=== PATIENT | female | born 1955 | race Caucasian/White ===

== ENCOUNTER → 2016-12-25 | Outpatient (CLI) | payer OTHER ==
--- NOTE | 2016-12-25 13:59 | DIAGNOSTIC IMAGING REPORT ---
THYROID ULTRASONOGRAPHY CLINICAL HISTORY: R13.10 Dysphagia COMPARISON STUDY: No previous studies for comparison. FINDINGS: The right of the thyroid measures 5.5 x 1.7 x 1.4 cm. The left lobe measures 4. 81.5 x 1.2 cm. The thyroid is heterogeneous in echotexture. There is a 7 mm circumscribed hypoechoic lower pole left lobe nodule. IMPRESSION: 1. Heterogeneous thyroid echotexture. 7 mm hypoechoic circumscribed lower pole left lobe nodule. This nodule does not currently warrant aspiration based on size or morphologic characteristics. Surveillance is recommended. Electronically signed by: Festus Giles M.D. 12/25/2016 1:57 PM Dictated Date/Time: 12/25/2016 1:56 PM
== END | disposition home or self-care (01) ==
LOC: C.ULTR 13:12
PROVIDERS: ATTEND Internal Medicine Endocrinology, Diabetes & Metabolism
DX: R13.10 Dysphagia, unspecified (principal); E04.1 Nontoxic single thyroid nodule

== ENCOUNTER → 2016-12-26 | Outpatient (CLI) | payer OTHER ==
[2016-12-26 12:21] LABS: HEMATOCRIT 44.5 % (37-47); MEAN CELL VOLUME 92.3 fL (80-100); MEAN CORPUSCULAR HEMOGLOBIN 30.7 pg (25-34); MEAN CORPUSCULAR HGB CONC 33.3 g/dl (32-36); MEAN PLATELET VOLUME 10.7 fL (7.4-10.4); PLATELET COUNT 249 K/uL (130-400); RED BLOOD COUNT 4.82 M/uL (4.2-5.4); WHITE BLOOD COUNT 6.48 K/uL (4.8-10.8)
[2016-12-26 12:36] LABS: ALT/SGPT 37 U/L (12-78); BLOOD UREA NITROGEN 16 mg/dl (7-18); BUN/CREATININE RATIO 18.3 (10-20); CALCIUM 9.1 mg/dl (8.5-10.1); CARBON DIOXIDE 26 mmol/L (21-32); CHLORIDE 106 mmol/L (98-107); CHOLESTEROL 257 mg/dl (0-200); CREATININE 0.87 mg/dl (0.60-1.20); ESTIMATED AVERAGE GLUCOSE 123 mg/dl; GLUCOSE 106 mg/dl (70-99); HA1C FLAG Normal (Normal); POTASSIUM 4.2 mmol/L (3.5-5.1); SODIUM 141 mmol/L (136-145); TRIGLYCERIDES 171 mg/dl (0-150); VERY LOW DENSITY LIPOPROT CALC 34 mg/dl
[2016-12-26 12:43] LABS: INSULIN FASTING 22.6 mU/L (3-25)
[2016-12-26 12:45] LABS: ALB/GLOB RATIO 0.9 (0.9-2); ALKALINE PHOSPHATASE 88 U/L (45-117); AST/SGOT 16 U/L (15-37); CHOLESTEROL/HDL RATIO 4.5; HDL CHOLESTEROL 57 mg/dl; LDL CHOLESTEROL CALCULATED 166 mg/dl
== END | disposition home or self-care (01) ==
LOC: C.LABBFT 10:40
PROVIDERS: ATTEND Internal Medicine Endocrinology, Diabetes & Metabolism
DX: R53.83 Other fatigue (principal); I10 Essential (primary) hypertension; R73.01 Impaired fasting glucose; M79.1 Myalgia

== ENCOUNTER 2019-10-03 16:37 | Observation (INO) ==
[2019-10-03] MEDS ORDERED: ONDANSETRON INJ 2 MG/ML 2 ML VIAL IV STA (16:41)
[2019-10-03] MEDS ORDERED: KETOROLAC TROMETHAMINE 15 MG/ML VIAL IV ONE (16:43)
[2019-10-03] MEDS ORDERED: SODIUM CHLORIDE 0.9% 1000ML 1,000 ML IV SCH (16:45)
--- NOTE | 2019-10-03 16:53 | Emergency Department Note ---
Entered by Yumiko Fitzgerald acting as a scribe for Gordon Callahan DO History of Present Illness General Chief complaint: Kidney Stone Stated complaint: KIDNEY STONE, R SIDE AB/BACK PAIN Time Seen by Provider: 10/03/19 16:38 Source: patient and EMS Mode of arrival: EMS History of Present Illness Onset (ago): hour(s) (this morning) Location: back (right sided) Radiation: abdomen (right side) Pain Consistency: + constant Associated symptoms: + denies other symptoms (vomiting), + loss of appetite (x2 days) and + other (nausea, darkened yellow urine); no fever/chills Treatments prior to arrival: other (hydrocodone ) The patient is a 63 year old female with a history of right ureteral calculus, appendectomy, cholecystectomy, HTN, and [place] who presents to the Emergency Room wi complaints of a kidney stone. The patient was seen in the ED 2 days ago and diagnosed with a 3mm right sided proximal kidney stone. This morning she began experiencing worsening right sided back pain that radiates to the right side of her abdomen. 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 Additionally she complains of darkened yellow urine, nausea, and loss of appetite for 2 days. EMS reports that she passed a kidney stone during her recent visit without surgical intervention. Of note, she is not UTD on her vaccinations. She denies vomiting and fever. The patient offers no additional concerns at this time. Home Medications Home Medications Medication Instructions Recorded Confirmed Type calcium carbonate [Calcium 500] 500 mg PO HS 07/03/19 10/03/19 History lisinopril [Zestril] 40 mg PO QAM 07/03/19 10/03/19 History metformin [Glucophage XR] 500 mg PO QDD 07/03/19 10/03/19 History metoprolol tartrate [Lopressor] 50 mg PO BID 07/03/19 10/03/19 History montelukast [Singulair] 10 mg PO HS 07/03/19 10/03/19 History nitroglycerin [Nitrostat] 0.4 mg SUBLINGUAL DIRECTED PRN 07/03/19 10/03/19 History omeprazole 20 mg PO BID 07/03/19 10/03/19 History nebulizers #1 ea 07/20/19 10/01/19 Rx budesonide-formoterol HFA 160 2 puff INHALATION BID #10.2 gm 08/24/19 10/03/19 Rx mcg-4.5 mcg/actuation aerosol inhaler albuterol sulfate 90 mcg/actuation 2 puffs INHALATION Q6H PRN #18 gm 09/15/19 10/03/19 Rx aerosol inhaler albuterol sulfate 1.25 mg INH Q4H PRN 10/01/19 10/03/19 History hydrocodone-acetaminophen [[place]] 1 - 2 tab PO Q6H PRN #20 tab 10/01/19 10/03/19 Rx ondansetron 4 mg PO Q8H PRN 5 Days #14 tab 10/01/19 10/03/19 Rx ibuprofen 200 mg PO QID PRN 10/03/19 10/03/19 History tamsulosin [Flomax] 0.4 mg PO QAM 10/03/19 10/03/19 History Allergies Allergy/AdvReac Type Severity Reaction Status Date / Time Penicillins Allergy Unknown HAPPENED Verified 10/03/19 17:00 A CHILD Sulfa (Sulfonamide Allergy Unknown [facility] LIST Verified 10/03/19 17:00 Antibiotics) Past Med/Surg History Medical History (Updated 10/03/19 @ 19:35 by Jessica Johnson PA-C) CAD (coronary artery disease) Diabetes mellitus type II, controlled GERD (gastroesophageal reflux disease) Heart attack HLD (hyperlipidemia) Hypertension Kidney stone on right side Surgical History History of appendectomy History of cholecystectomy Family History Mother Hypertension Father Coronary heart disease Renal cell carcinoma Other Family history non-contributory Social History Preferred Language: [place]ian Communication Ability: Effective 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 and A total of 10 systems reviewed and were otherwise negative Physical Exam Vital Signs Vital Signs - 24 hr 10/03/19 16:45 10/03/19 17:03 10/03/19 17:54 Temperature 37.0 C Temperature Source Oral Pulse Rate 87 Pulse Rate [Apical] 89 Respiratory Rate 18 16 Blood Pressure 171/92 H Blood Pressure [Left Arm] 184/99 H Blood Pressure Mean 118 Blood Pressure Mean [Left Arm] 127 Pulse Oximetry 97 99 99 Oxygen Delivery Method Room Air Nasal Cannula Oxygen Flow Rate 1 Sepsis Recent Fever Within 48 Hours No Sepsis New/Unexplained Change in Mental Status No Sepsis Action Taken by Nursing No Action Required GENERAL: The patient is awake and alert. She is very anxious appearing and appears to be in significant pain. EYES: The conjunctivae are clear. The pupils are round and reactive. EARS, NOSE, MOUTH AND THROAT: The nose is without any evidence of any deformity. Mucous membranes are moist. Tongue is midline. NECK: The neck is nontender and supple. RESPIRATORY: Normal respiratory effort is noted there is no evidence of wheezing rhonchi or rales CARDIOVASCULAR: Regular rate and rhythm noted there no murmurs rubs or gallops normal S1 normal S2. GASTROINTESTINAL: The abdomen is soft and mildly distended. There is significant right-sided tenderness to palpation but no guarding or rigidity. BACK: No midline tenderness was noted. There was right sided CVA tenderness to percussion. Range of motion appears intact. MUSCULOSKELETAL/EXTREMITIES: There is no evidence of gross deformity full range of motion is noted in the hips and shoulders. SKIN: There is no obvious evidence of any rash. There are no petechiae, pallor or cyanosis noted. NEUROLOGIC: Patient is awake alert and oriented x3 strength is symmetric patellar reflexes are 2+ bilaterally Course Course 1641: Past medical records reviewed. The patient was evaluated in room A03. A complete history and physical exam was performed. 1833: I checked on the patient and she states she was feeling slightly better but still in a great amount of pain. 183: I spoke to Dr. Gomes, [facility] Hospitalist who accepts the patient for admission. The patient verbally expressed understanding and agreement of the treatment plan. The patient will be evaluated for further treatment. Administered Medications Budesonide/Formoterol Fumarate (Symbicort 160mcg/4.5mcg) 2 puffs INH BID TANIA Stop: 11/02/19 20:59 Last Admin: 10/03/19 21:51 Dose: 2 puffs Documented by: [id number] Hydromorphone HCl (Dilaudid) 0.5 mg IV Q2H PRN PRN Reason: Pain Stop: 10/17/19 20:21 Last Admin: 10/03/19 23:24 Dose: 0.5 mg Documented by: [id number] Admin: 10/03/19 20:53 Dose: 0.5 mg Documented by: [id number] Sodium Chloride (Nss 1000ml) 1,000 mls @ 125 mls/hr IV .Q8H TANIA Stop: 11/02/19 20:21 Last Admin: 10/03/19 20:58 Dose: 125 mls/hr Documented by: [id number] Insulin Aspart (Novolog Flexpen) 0 units SC ACHS [facility] Stop: 11/02/19 20:59 Last Admin: 10/03/19 21:56 Dose: Not Given Documented by: [id number] Cosigned by: [id number] Metoprolol Tartrate (Lopressor) 50 mg PO BID [facility] Stop: 11/02/19 20:59 Last Admin: 10/03/19 21:51 Dose: 50 mg Documented by: [id number] Montelukast Sodium (Singulair) 10 mg PO HS [facility] Stop: 11/02/19 20:59 Last Admin: 10/03/19 21:51 Dose: 10 mg Documented by: [id number] Ondansetron HCl (Zofran) 4 mg IV Q6H PRN PRN Reason: nausea Stop: 11/02/19 20:21 Last Admin: 10/03/19 20:36 Dose: 4 mg Documented by: [id number] Pantoprazole Sodium (Protonix) 40 mg PO BID [facility] Stop: 11/02/19 20:59 Last Admin: 10/03/19 21:51 Dose: 40 mg Documented by: [id number] Discontinued Medications Fentanyl Citrate (Fentanyl Citrate) 50 mcg IV Q15M PRN PRN Reason: Pain Stop: 10/17/19 16:40 Last Admin: 10/03/19 19:38 Dose: 50 mcg Documented by: [id number] Admin: 10/03/19 18:31 Dose: 50 mcg Documented by: [id number] Admin: 10/03/19 17:47 Dose: 50 mcg Documented by: [id number] Admin: 10/03/19 16:57 Dose: 50 mcg Documented by: [id number] Sodium Chloride (Nss 1000ml) 1,000 mls @ 999 mls/hr IV .Q1H1M TANIA Stop: 10/03/19 17:45 Last Infusion: 10/03/19 19:38 Dose: 0 mls/hr Documented by: [id number] Admin: 10/03/19 16:57 Dose: 999 mls/hr Documented by: [id number] Ketorolac Tromethamine (Toradol) 10 mg IV NOW ONE Stop: 10/03/19 16:44 Last Admin: 10/03/19 16:57 Dose: 10 mg Documented by: [id number] Ondansetron HCl (Zofran) 4 mg IV NOW STA Stop: 10/03/19 16:42 Last Admin: 10/03/19 16:57 Dose: 4 mg Documented by: [id number] Potassium Chloride (Klor-Con M20) 40 meq PO NOW STA Stop: 10/03/19 19:15 Last Admin: 10/03/19 19:25 Dose: 40 meq Documented by: [id number] Medical Decision Making Differential Diagnosis Differential diagnosis includes but is not limited to etiologies such as renal colic, appendicitis, diverticulitis, mesenteric ischemia, aortic pathology, inf ections, inflammatory bowel disease, PUD, biliary pathology, UTI, as well as others were entertained. Medical Records Attestation: I reviewed the patient's medical records. Home Medications Current Medication List: was personally reviewed by me Laboratory Data Attestation: I reviewed the patient's lab results. Result diagrams: 10/03/19 16:51 10/03/19 16:51 Lab Results 10/03/19 10/03/19 10/03/19 Range/Units 16:51 16:51 17:58 WBC 9.08 (4.8-10.8) K/uL RBC 4.56 (4.2-5.4) M/uL Hgb 13.6 (12.0-16.0) g/dL Hct 41.5 (37-47) % MCV 91.0 (80-100) fL MCH 29.8 (25-34) pg MCHC 32.8 (32-36) g/dL RDW Std Deviation 48.9 H (36.4-46.3) fL RDW Coeff of Mario 14.7 H (11.5-14.5) % Plt Count 255 (130-400) K/uL MPV 9.9 (7.4-10.4) fL Immature Gran % (Auto) 0.3 % Neut % (Auto) 68.8 % Lymph % (Auto) 21.4 % [place] % (Auto) 7.6 % Eos % (Auto) 1.7 % Baso % (Auto) 0.2 % Immature Gran # (Auto) 0.03 H (0.00-0.02) K/uL Neut # (Auto) 6.25 (1.4-6.5) K/uL Lymph # (Auto) 1.94 (1.2-3.4) K/uL [place] # (Auto) 0.69 H (0.11-0.59) K/uL Eos # (Auto) 0.15 (0-0.5) K/uL Baso # (Auto) 0.02 (0-0.2) K/uL Sodium 138 (136-145) mmol/L Potassium 3.3 L (3.5-5.1) mmol/L Chloride 106 (98-107) mmol/L Carbon Dioxide 24 (21-32) mmol/L Anion Gap 8.0 (3-11) BUN 13 (7-18) mg/dl Creatinine 0.89 (0.6-1.2) mg/dl Est Cr Clr Drug Dosing 71.8 ml/min Est GFR ( Amer) 81.1 Est GFR (Non-Af Amer) 70.0 BUN/Creatinine Ratio 14.2 (10-20) Glucose 130 H (70-99) mg/dl Calcium 8.7 (8.5-10.1) mg/dl Total Bilirubin 1.1 H (0.2-1) mg/dl AST 67 H (15-37) U/L ALT 309 H (12-78) U/L Alkaline Phosphatase 129 H (45-117) U/L Total Creatine Kinase 45 (26-192) U/L Total Protein 6.8 (6.4-8.2) gm/dl Albumin 3.3 L (3.4-5.0) gm/dl Globulin 3.5 (2.5-4.0) gm/dl Albumin/Globulin Ratio 0.9 (0.9-2) Lipase 64 L (73-393) U/L Urine Color Yellow Urine Appearance Clear (Clear) Urine pH 6.5 (4.5-7.5) Ur Specific [place] 1.015 (1.000-1.030) Urine Protein Negative (Negative) Urine Glucose (UA) Negative (Negative) Urine Ketones 2+ H (Negative) Urine Blood 1+ H (Negative) Urine Nitrite Negative (Negative) Urine Bilirubin Negative (Negative) Urine Urobilinogen Negative (Negative) Ur Leukocyte Esterase Negative (Negative) Urine WBC (Auto) 1-5 (0-5) /hpf Urine RBC (Auto) 5-10 H (0-4) /hpf U Hyaline Cast (Auto) 1-5 (0-5) /lpf U Epithel Cells (Auto) 10-20 H (0-5) /lpf Urine Bacteria (Auto) Negative (Negative) Imaging Data Radiologist's Impression: Radiology results as stated below per my review and the radiologist's interpretation: KUB HISTORY: right flank pain, recent kidney stone on CT COMPARISON: Abdomen and pelvis CT 10/01/2019. FINDINGS: The bowel gas pattern is unremarkable. There are no dilated loops of small bowel to suggest an obstruction. Overlying bowel gas obscures the majority of the renal shadows. Specifically, and no right renal calculi are identified given the overlying bowel gas. No left renal calculi. Calcifications in the deep pelvis likely represents limbus. There is a 3 mm calcification within the right deep pelvis which likely represents distal migration the patient's known right ureteral stone. No pneumoperitoneum or pneumatosis. IMPRESSION: The 3 mm right ureteral stone now resides in the expected location of the distal right ureter. Electronically signed by: López Pichardo M.D. 10/03/2019 6:07 PM Blood Pressure Blood Pressure Findings: Elevated blood pressure Blood Pressure Disposition: further management by hospitalist LANRE Hernandez The patient is a 63-year-old female who presented to the emergency department for right flank pain. The patient was seen in our facility recently with similar complaints. She was diagnosed with a proximal right ureteral calculus. The patient was taking pain medication as an outpatient but according to her family member she is had very little pain relief since her diagnosis of kidney stone. The patient was treated with IV fluids and IV pain medication in the emergency department. She was reevaluated multiple times. I discussed the patient's laboratory and radiographic studies with her. It appears that her ur eteral calculi is moving and now appears to be more in the distal ureter but she continues to have very significant pain and was also found to have an elevation in her liver function studies compared to previous. For this reason I discussed her case with the on-call [facility] hospitalist group. They have agreed to evaluate the patient in the emergency department for further management and di sposition. Impression & Plan Kidney stone, Renal colic, Abnormal results of liver function studies Discharge Plan Visit Data *Final* Discharge Date/Time: 10/03/19 19:43 Chief Complaint: Kidney Stone Stated Complaint: KIDNEY STONE, R SIDE AB/BACK PAIN ED Provider: Gordon Callahan Discharge Problem: Kidney stone, Renal colic, Abnormal results of liver function studies Patient Disposition: Admitted As Inpatient Discharge Instructions Interventions: ED Discharge Assessment Last Done: 10/03/19 19:43 The scribe's documentation has been prepared under my direction and personally reviewed by me in its entirety. I confirm that the note above accurately reflects all work, treatment, procedures, and medical decision making performed by me.
[2019-10-03] MEDS: fentaNYL citrate 100 MCG/2 ML VIAL IV PRN ×4 (16:57→19:38)
[2019-10-03 17:03] LABS: Basophils # (auto) 0.02 K/uL (0-0.2); Basophils % (auto) 0.2 %; Eosinophils # (auto) 0.15 K/uL (0-0.5); Eosinophils % (auto) 1.7 %; Hematocrit (blood only) 41.5 % (37-47); Hemoglobin 13.6 g/dL (12.0-16.0); Immature Granulocytes # (auto) 0.03 K/uL (0.00-0.02); Immature Granulocytes % (auto) 0.3 %; Lymphocytes # (auto) 1.94 K/uL (1.2-3.4); Lymphocytes % (auto) 21.4 %; Mean Corpuscular Hemoglobin 29.8 pg (25-34); Mean Corpuscular Hgb Conc 32.8 g/dL (32-36); Mean Platelet Volume 9.9 fL (7.4-10.4); Monocytes # (auto) 0.69 K/uL (0.11-0.59); Monocytes % (auto) 7.6 %; Neutrophils # (auto) 6.25 K/uL (1.4-6.5); Neutrophils % (auto) 68.8 %; Platelet Count 255 K/uL (130-400); RDW Coefficient of Variation 14.7 % (11.5-14.5); RDW Standard Deviation 48.9 fL (36.4-46.3); Red Blood Count 4.56 M/uL (4.2-5.4); White Blood Count 9.08 K/uL (4.8-10.8)
[2019-10-03 17:19] LABS: Albumin Level 3.3 gm/dl (3.4-5.0); BUN Creatinine Ratio 14.2 (10-20); Calcium 8.7 mg/dl (8.5-10.1); Creatinine Clr Calc Pharmacy 71.8 ml/min; Est GFR (African American) 81.1; Potassium 3.3 mmol/L (3.5-5.1)
[2019-10-03 17:21] LABS: Albumin Globulin Ratio 0.9 (0.9-2); Bilirubin,Total 1.1 mg/dl (0.2-1); Globulin 3.5 gm/dl (2.5-4.0); Total Protein 6.8 gm/dl (6.4-8.2)
--- NOTE | 2019-10-03 18:08 | XRay Report ---
KUB HISTORY: right flank pain, recent kidney stone on CT COMPARISON: Abdomen and pelvis CT 10/01/2019. FINDINGS: The bowel gas pattern is unremarkable. There are no dilated loops of small bowel to suggest an obstruction. Overlying bowel gas obscures the majority of the renal shadows. Specifically, and n o right renal calculi are identified given the overlying bowel gas. No left renal calculi. Calcificat ions in the deep pelvis likely represents limbus. There is a 3 mm calcification within the right deep pelvis which likely represents distal migration the patient's known right ureteral stone. No pneumop eritoneum or pneumatosis. IMPRESSION: The 3 mm right ureteral stone now resides in the expected location of the distal right ureter. Electronically signed by: López Pichardo M.D. 10/03/2019 6:07 PM
[2019-10-03 18:09] LABS: Appearance Urine Clear (Clear); Bacteria Urine Automated Negative (Negative); Bilirubin Urine Negative (Negative); Blood Urine 1+ (Negative); Color Urine Yellow; Glucose Urine UA Negative (Negative); Ketones Urine 2+ (Negative); Leukocyte Esterase Urine Negative (Negative); Nitrite Urine Negative (Negative); Protein Urine Negative (Negative); Specific Gravity Urine 1.015 (1.000-1.030); Urobilinogen Urine Negative (Negative); pH Urine 6.5 (4.5-7.5)
[2019-10-03] MEDS ORDERED: POTASSIUM CHLORIDE 20 MEQ TABCR PO STA (19:14)
--- NOTE | 2019-10-03 19:38 | History & Physical Report ---
Date of Service October 03, 2019 Assessment & Plan (1) Kidney stone: - KUB showed 3 mm right ureter stone in distal right ureter which has progressed compared to CT from 2 days prior (now more distal); repeat KUB in the morning to evaluate for improvement. -admit for intractable pain failing outpatient treatment - Strain all urine. - IV fluids at 125 cc/hr. - Flomax 0.4 mg PO daily. - Tylenol prn mild pain; Dilaudid 0.5 mg IV q2hr prn severe pain, titrate as tolerated. - Carb consistent, heart healthy diet; NPO after midnight for possible procedure. - Urology consulted, will evaluate patient in the morning. (2) Right flank pain: - Related to renal colic as noted above. (3) CAD (coronary artery disease): - Reports h/o TN in [place]; did not have cardiac cath. - Follows with Dr. Shearer. - Continue Lisinopril and Metformin; not currently on ASA or statin agent. - Stress test in 2012 by [facility] cardiology was negative. - EKG pending for pre-op purposes. (4) GERD (gastroesophageal reflux disease): - PPI. (5) Diabetes mellitus type II, controlled: - Hold home Metformin XR. - Hemoglobin A1C in the morning. - SSI coverage as inpatient with carb consistent diet. (6) HLD (hyperlipidemia): - Not currently on statin agent. (7) Hypertension: - Continue Metoprolol 50 mg BID (pt. reports she takes med prn at home) and Lisinopril (consider holding ACEI if she requires procedure tomorrow) - BP has been elevated, likely related to acute pain. (8) Abnormal results of liver function studies: - T bili 1.1, AST 67, ALT 309, Alk phos 129. -no abdominal pain, just right lower back and right groin pain from stone - Tylenol level pending -- was taking PO narcotics with Acetaminophen at home. - H/o cholecystectomy - not related to gallstones. - CK level is pending to rule out rhabdo. - Consider RUQ US if no improvement; monitor CMP daily. -check Hepatitis panel if not improving (9) Restrictive airway disease: - Recently evaluated by pulm service, received course of Levaquin and Prednisone. - Continue Albuterol neb q4hr prn with Symbicort BID. - No acute resp issues noted at this time. (10) DVT prophylaxis: - SCDs; holding pharmacologic ppx for possible procedure. K level 3.4 - ordered KCl 40 mEq PO. Dispo: Med/surg with tele for right ureter stone; may require intervention danny rrow if no improvement. History of Present Illness Chief Complaint: Right flank pain Primary Care Provider: NO PCP Mrs. Cr is a 63 year old female with past medical history of asthma, restrictive lung disease, HTN, DM, GERD, CAD, HLD who presented with right flank pain. She presented to the ER on 10/01 with similar symptoms; CT showed 3 mm proximal right ureter calculus. She was discharged to home with pain control and Flomax. Pt. reports she has had increasing pain in her right flank region following discharge to home -- has not had any improvement with PO narcotics. Her daughter states she was "doubled over" in pain this morning and brought her to the ER. Denies fever/chills, dysuria or hematuria, abd pain, URI symptoms, chest pain, SOB. Has nausea related to pain, denies vomiting. Last BM was a few days ago but PO intake has been very limited. ER course: KUB showed 3 mm right ureter stone at distal right ureter. Required Fentanyl IV and toradol for pain relief. Will be admitted for IV fluid hydration and IV narcotics. Allergies Allergy/AdvReac Type Severity Reaction Status Date / Time Penicillins Allergy Unknown HAPPENED Verified 10/03/19 17:00 A CHILD Sulfa (Sulfonamide Allergy Unknown [facility] LIST Verified 10/03/19 17:00 Antibiotics) Home Medications Home Medications Medication Instructions Recorded Confirmed Type lisinopril [Zestril] 40 mg PO QAM 07/03/19 10/03/19 History metformin [Glucophage XR] 500 mg PO QDD 07/03/19 10/03/19 History metoprolol tartrate [Lopressor] 50 mg PO BID 07/03/19 10/03/19 History montelukast [Singulair] 10 mg PO HS 07/03/19 10/03/19 History nitroglycerin [Nitrostat] 0.4 mg SUBLINGUAL DIRECTED PRN 07/03/19 10/03/19 History omeprazole 20 mg PO BID 07/03/19 10/03/19 History nebulizers #1 ea 07/20/19 10/04/19 Rx budesonide-formoterol HFA 160 2 puff INHALATION BID #10.2 gm 08/24/19 10/03/19 Rx mcg-4.5 mcg/actuation aerosol inhaler albuterol sulfate 90 mcg/actuation 2 puffs INHALATION Q6H PRN #18 gm 09/15/19 10/03/19 Rx aerosol inhaler albuterol sulfate 1.25 mg INH Q4H PRN 10/01/19 10/03/19 History hydrocodone-acetaminophen [[place]] 1 - 2 tab PO Q6H PRN #20 tab 10/01/19 10/03/19 Rx ondansetron 4 mg PO Q8H PRN 5 Days #14 tab 10/01/19 10/03/19 Rx ibuprofen 200 mg PO QID PRN 10/03/19 10/03/19 History tamsulosin [Flomax] 0.4 mg PO QAM 10/03/19 10/03/19 History Past Med/Surg History Medical History (Updated 10/03/19 @ 19:35 by Jessica Ledbetter PA-C) CAD (coronary artery disease) Diabetes mellitus type II, controlled GERD (gastroesophageal reflux disease) Heart attack HLD (hyperlipidemia) Hypertension Kidney stone on right side Surgical History History of appendectomy History of cholecystectomy Family History Mother Hypertension Father Coronary heart disease Renal cell carcinoma Other Family history non-contributory Social History Preferred Language: Indian Communication Ability: Effective Relations Director Required: No Beliefs That Will Affect Care: None Current Living Situation: Spouse Feels Safe at Home: Yes Safety Concerns: Feels Safe At This Time Smoking Status: Never smoker Hx Alcohol Use: No Hx Substance Use: No Review of Systems Review of Systems: All systems reviewed & are unremarkable except as noted in HPI & below Constitutional: + fatigue, + weakness and + anorexia; no fever and no chills Respiratory: no cough, no dyspnea, no dyspnea on exertion and no wheezing Cardiovascular: no chest pain, no palpitations and no edema Gastrointestinal: + nausea and + constipation; no abdominal pain and no vomiting Genitourinary: + flank pain; no dysuria, no difficulty urinating, no urinary frequency, no urinary hesitancy and no hematuria Musculoskeletal: no back pain, no joint pain and no swelling Integumentary: no non-healing lesions Physical Exam Physical Exam: General: In acute distress related to pain HEENT: NC/AT; PERRLA with EOMI; [place]abor conjunctiva, MMM. No erythema of posterior pharynx Neck: Supple and nontender Cardiac: RRR Lungs: CTA bilaterally Abdomen: Bowel normoactive X 4; tender to palp over right abd/flank region. : Deferred Extremities: Warm. No edema present Neuro: No focal weakness Skin: No rash Results & Data Vital Signs (Past 12 Hours) Vital Signs Temp Pulse Pulse Resp BP BP Pulse Ox 10/03/19 17:54 89 16 184/99 H 99 10/03/19 17:03 99 10/03/19 16:45 37.0 C 87 18 171/92 H 97 Laboratory Results 10/03/19 10/03/19 10/03/19 Range/Units 17:58 16:51 16:51 WBC 9.08 (4.8-10.8) K/uL RBC 4.56 (4.2-5.4) M/uL Hgb 13.6 (12.0-16.0) g/dL Hct 41.5 (37-47) % MCV 91.0 (80-100) fL MCH 29.8 (25-34) pg MCHC 32.8 (32-36) g/dL RDW Std Deviation 48.9 H (36.4-46.3) fL RDW Coeff of Mario 14.7 H (11.5-14.5) % Plt Count 255 (130-400) K/uL MPV 9.9 (7.4-10.4) fL Immature Gran % (Auto) 0.3 % Neut % (Auto) 68.8 % Lymph % (Auto) 21.4 % Dane % (Auto) 7.6 % Eos % (Auto) 1.7 % Baso % (Auto) 0.2 % Immature Gran # (Auto) 0.03 H (0.00-0.02) K/uL Neut # (Auto) 6.25 (1.4-6.5) K/uL Lymph # (Auto) 1.94 (1.2-3.4) K/uL Dane # (Auto) 0.69 H (0.11-0.59) K/uL Eos # (Auto) 0.15 (0-0.5) K/uL Baso # (Auto) 0.02 (0-0.2) K/uL Sodium 138 (136-145) mmol/L Potassium 3.3 L (3.5-5.1) mmol/L Chloride 106 (98-107) mmol/L Carbon Dioxide 24 (21-32) mmol/L Anion Gap 8.0 (3-11) BUN 13 (7-18) mg/dl Creatinine 0.89 (0.6-1.2) mg/dl Est Cr Clr Drug Dosing 71.8 ml/min Est GFR ( Amer) 81.1 Est GFR (Non-Af Amer) 70.0 BUN/Creatinine Ratio 14.2 (10-20) Glucose 130 H (70-99) mg/dl Calcium 8.7 (8.5-10.1) mg/dl Total Bilirubin 1.1 H (0.2-1) mg/dl AST 67 H (15-37) U/L ALT 309 H (12-78) U/L Alkaline Phosphatase 129 H (45-117) U/L Total Protein 6.8 (6.4-8.2) gm/dl Albumin 3.3 L (3.4-5.0) gm/dl Globulin 3.5 (2.5-4.0) gm/dl Albumin/Globulin Ratio 0.9 (0.9-2) Lipase 64 L (73-393) U/L Urine Color Yellow Urine Appearance Clear (Clear) Urine pH 6.5 (4.5-7.5) Ur Specific [place] 1.015 (1.000-1.030) Urine Protein Negative (Negative) Urine Glucose (UA) Negative (Negative) Urine Ketones 2+ H (Negative) Urine Blood 1+ H (Negative) Urine Nitrite Negative (Negative) Urine Bilirubin Negative (Negative) Urine Urobilinogen Negative (Negative) Ur Leukocyte Esterase Negative (Negative) Urine WBC (Auto) 1-5 (0-5) /hpf Urine RBC (Auto) 5-10 H (0-4) /hpf U Hyaline Cast (Auto) 1-5 (0-5) /lpf U Epithel Cells (Auto) 10-20 H (0-5) /lpf Urine Bacteria (Auto) Negative (Negative) Code Status & VTE Plan Code Status FULL CODE VTE Prophylaxis Plan VTE Prophylaxis will be ordered: Yes Supervising Physician Co-Signing Physician Notes PA Supervision Note: I personally saw and examined the patient. I verified all amor points and agree with MARIANO Ledbetter with the following exceptions and/or additions: Presents with intractable right lower back and right groin pain secondary to small right ureteral 3mm stone, failed outpat therapy with hydrocodone and flomax. Is having N/V and minimal po intake at home. History reviewed ROS reviewed as above and agree VSS NAD, AAOx3 RRR no mgr CTAB no wcr Abd +BS soft NT except right lower back, no hernia, no masses Ext no edema or calf tenderness 63 yo female here with right ureterolithiasis, intractable pain, N/V. No UTI or sepsis, no renal failure -admit for IVFs, continue pain control IV, antiemetics, Flomax, Urology consult -Elevated LFTs could be secondary to medication side effect, unclear etiology, no RUQ pain, is s/p cholecystectomy, CT A/P just 2 days ago no abnormality at that time -trend LFTs, check APAP level although she claims she only took 3 total hydrocodone tabs, no OTC supplements she is taking, check CPK level -has had LFT elevation in past but not as high, no fatty liver on CT PG Care Time/CCT Total # of Minutes Spent Total Time Spent with Patient: Total time spent is greater than 50% in coordination of care (as documented) at patient's floor/unit and/or counseling patient:
[2019-10-03] MEDS ORDERED: GLUCOSE 10 TABS/TUBE PO PRN (20:22)
[2019-10-03] MEDS ORDERED: GLUCAGON FOR INJ 1 MG VIAL SQ PRN (20:22)
[2019-10-03] MEDS ORDERED: CARBOHYDRATES FOR HYPOGLYCEMIA PO PRN (20:22)
[2019-10-03] MEDS ORDERED: ALBUTEROL 0.083% NEBU SOLN 3 ML VIAL INH PRN (20:22)
[2019-10-03] MEDS ORDERED: MAGNESIUM HYDROXIDE SUSP 30 ML UDC PO PRN (20:22)
[2019-10-03] MEDS ORDERED: GLUCOSE 40% GEL 15 GM TUBE PO PRN (20:22)
[2019-10-03] MEDS ORDERED: DEXTROSE 50% 50 ML SYRINGE IV PRN (20:22)
[2019-10-03] MEDS: ONDANSETRON INJ 2 MG/ML 2 ML VIAL IV PRN (20:36)
[2019-10-03] MEDS: HYDROmorphone INJ 1 MG/ML SYRINGE IV PRN ×2 (20:53→23:24)
[2019-10-03] MEDS: SODIUM CHLORIDE 0.9% 1000ML 1,000 ML IV SCH (20:58)
[2019-10-03] MEDS: MONTELUKAST SODIUM 10 MG TABLET PO SCH (21:51)
[2019-10-03] MEDS: PANTOprazole 40 MG TAB PO SCH (21:51)
[2019-10-03] MEDS: BUDESONIDE/FORMOTEROL FUMARATE 160/4.5 60 PUFFS/INHALER INH SCH (21:51)
[2019-10-03] MEDS: METOPROLOL TARTRATE 50 MG TAB PO SCH (21:51)
[2019-10-03] MEDS: INSULIN ASPART 100 UNITS/ML 3 ML PEN SC SCH (21:56)
[2019-10-04] MEDS: HYDROmorphone INJ 1 MG/ML SYRINGE IV PRN ×5 (04:26→20:28)
[2019-10-04] MEDS: SODIUM CHLORIDE 0.9% 1000ML 1,000 ML IV SCH ×2 (05:09→18:25)
[2019-10-04] MEDS ORDERED: CIPROFLOXACIN 400 MG/200 ML BAG IV SCH (06:00)
[2019-10-04 07:06] LABS: Hematocrit (blood only) 37.9 % (37-47); Hemoglobin 12.3 g/dL (12.0-16.0); Mean Corpuscular Hemoglobin 29.5 pg (25-34); Mean Corpuscular Hgb Conc 32.5 g/dL (32-36); Mean Corpuscular Volume 90.9 fL (80-100); Mean Platelet Volume 9.8 fL (7.4-10.4); Platelet Count 214 K/uL (130-400); RDW Coefficient of Variation 14.8 % (11.5-14.5); RDW Standard Deviation 49.1 fL (36.4-46.3); Red Blood Count 4.17 M/uL (4.2-5.4); White Blood Count 6.79 K/uL (4.8-10.8)
--- NOTE | 2019-10-04 07:11 | XRay Report ---
XR KUB/Abdomen 1 view CLINICAL HISTORY: Right renal stone nephrocalcinosis COMPARISON STUDY: 10/13/2019 FINDINGS: Interval distal migration of the distal right ureteral calculus. It is now slightly proxima l to right ureteral vesicle junction. Remainder the study is unchanged. IMPRESSION: Slight interval distal migration of the distal right ureteral calculus. It is now slight ly proximal to the right ureterovesical junction. The above report was generated using voice recognition software. It may contain grammatical, syntax or spelling errors. Electronically signed by: Yasmani Toussaint M.D. 10/04/2019 7:10 AM
[2019-10-04 07:16] LABS: Prothrombin Time 10.1 Seconds (9.0-12.0)
[2019-10-04 07:41] LABS: Albumin Level 2.7 gm/dl (3.4-5.0); BUN Creatinine Ratio 9.9 (10-20); Calcium 8.7 mg/dl (8.5-10.1); Creatinine Clr Calc Pharmacy 62.7 ml/min; Est GFR (African American) 71.3; Est GFR (Non-African American) 61.5; Potassium 3.7 mmol/L (3.5-5.1)
[2019-10-04 07:46] LABS: Albumin Globulin Ratio 0.9 (0.9-2); Bilirubin,Total 1.8 mg/dl (0.2-1); Total Protein 5.7 gm/dl (6.4-8.2)
[2019-10-04 08:12] LABS: Estimated Average Glucose 120 mg/dl; Hemoglobin A1C 5.8 % (4.5-5.6)
[2019-10-04] MEDS: ONDANSETRON INJ 2 MG/ML 2 ML VIAL IV PRN (09:56)
[2019-10-04] MEDS: INSULIN ASPART 100 UNITS/ML 3 ML PEN SC SCH ×4 (10:10→21:21)
--- NOTE | 2019-10-04 10:31 | Ultrasound Report ---
US gallbladder HISTORY: Pain. Nausea. elevated LFTs, hx of cholecystectomy COMPARISON: None. FINDINGS: Prior cholecystectomy. Prominent common bile duct at 1 cm. This is most likely postoperative. Liver i s uniform throughout. Pancreas and right kidney are unremarkable. IMPRESSION: Negative study post cholecystectomy. Prominence of the common bile duct statistically on the basis of prior cholecystectomy and postoperative change. The above report was generated using voice recognition software. It may contain grammatical, syntax or spelling errors. Electronically signed by: Yasmani Toussaint M.D. 10/04/2019 10:30 AM
[2019-10-04] MEDS: BUDESONIDE/FORMOTEROL FUMARATE 160/4.5 60 PUFFS/INHALER INH SCH ×2 (10:37→20:31)
[2019-10-04] MEDS: PANTOprazole 40 MG TAB PO SCH ×2 (11:31→20:32)
[2019-10-04] MEDS: METOPROLOL TARTRATE 50 MG TAB PO SCH ×2 (11:31→20:32)
[2019-10-04] MEDS: lisinopriL 40 MG TAB PO SCH (11:31)
[2019-10-04] MEDS: TAMSULOSIN HCL 0.4 MG CAP PO SCH (11:31)
[2019-10-04] MEDS: ALBUTEROL 0.083% NEBU SOLN 3 ML VIAL INH SCH ×4 (13:21→23:30)
--- NOTE | 2019-10-04 13:35 | Urology Consultation ---
Date of Consultation October 04, 2019 Assessment & Plan (1) Right flank pain: (2) Kidney stone: 63yo F with 3mm distal right ureteral stone, renal colic. Findings reviewed with Dr. Garcia. Given her persistent colic in the context of an obstructing right stone, will proceed with OR for cystoscopy, Right retrograde pyelogram and Right stent placement, possible ureteroscopy, laser lithotripsy, stone basketing, possible ureteral dilation depending on findings. Risks and benefits to be reviewed with patient by Dr. Garcia. OR notified. Preoperative CXR and EKG completed. Will cover with IV Ciprofloxacin preoperatively. History of Present Illness Reason for Consultation: stone Requesting Physician: Dr. Reyes Attending Physician: Claudio Reyes History of Present Illness 63yo F admitted through [facility] ER for acute right flank pain. Diagnosed with 3mm stone on 10/01, evaluated in ED and discharged home. Pt readmitted for uncontrolled pain, colick. Denies n/v/f/c. Denies suprapubic pain or dysuria. Pt is mostly Thai speaking, daughter at bedside to translate. Chart review - stone visible on KUB. Cr and WBC WNL. Attending: risks and benefits discussed. Plan for Cystoscopy and right stent. Allergies Allergy/AdvReac Type Severity Reaction Status Date / Time Penicillins Allergy Unknown HAPPENED Verified 10/03/19 17:00 A CHILD Sulfa (Sulfonamide Allergy Unknown [facility] LIST Verified 10/03/19 17:00 Antibiotics) Home Medications Home Medications Medication Instructions Recorded Confirmed Type lisinopril [Zestril] 40 mg PO QAM 07/03/19 10/03/19 History metformin [Glucophage XR] 500 mg PO QDD 07/03/19 10/03/19 History metoprolol tartrate [Lopressor] 50 mg PO BID 07/03/19 10/03/19 History montelukast [Singulair] 10 mg PO HS 07/03/19 10/03/19 History nitroglycerin [Nitrostat] 0.4 mg SUBLINGUAL DIRECTED PRN 07/03/19 10/03/19 History omeprazole 20 mg PO BID 07/03/19 10/03/19 History nebulizers #1 ea 07/20/19 10/04/19 Rx budesonide-formoterol HFA 160 2 puff INHALATION BID #10.2 gm 08/24/19 10/03/19 Rx mcg-4.5 mcg/actuation aerosol inhaler albuterol sulfate 90 mcg/actuation 2 puffs INHALATION Q6H PRN #18 gm 09/15/19 10/03/19 Rx aerosol inhaler albuterol sulfate 1.25 mg INH Q4H PRN 10/01/19 10/03/19 History hydrocodone-acetaminophen [[place]] 1 - 2 tab PO Q6H PRN #20 tab 10/01/19 10/03/19 Rx ondansetron 4 mg PO Q8H PRN 5 Days #14 tab 10/01/19 10/03/19 Rx ibuprofen 200 mg PO QID PRN 10/03/19 10/03/19 History tamsulosin [Flomax] 0.4 mg PO QAM 10/03/19 10/03/19 History Patient History Medical History CAD (coronary artery disease) Diabetes mellitus type II, controlled GERD (gastroesophageal reflux disease) Heart attack HLD (hyperlipidemia) Hypertension Kidney stone on right side Surgical History History of appendectomy History of cholecystectomy Family History Mother Hypertension Father Coronary heart disease Renal cell carcinoma Other Family history non-contributory Social History Preferred Language: Thai Communication Ability: Effective General Contractor Required: No Beliefs That Will Affect Care: None Current Living Situation: Spouse Feels Safe at Home: Yes Smoking Status: Never smoker Hx Alcohol Use: No Hx Substance Use: No Review of Systems Review of Systems: All systems reviewed & are unremarkable except as noted in HPI & below Physical Exam Constitutional: no acute distress and not ill appearing anxious Eyes: no nystagmus ENMT: Ears: no hearing impairment Neck: trachea midline Respiratory: no respiratory distress and no cough Cardiovascular: Vessels: no JVD Chest (Breasts): Chest: normal inspection of chest Gastrointestinal (Abdomen): Inspection/Auscultation: abdomen not distended and no abdominal edema Percussion/Palpation: abdomen soft; abdomen nontender Musculoskeletal: Head/Neck/Chest: normocephalic and head atraumatic Skin: no rashes, warm and dry Neurologic: awake; not confused and not obtunded Psychiatric: Orientation: alert and oriented x 3 Eye Contact: good eye contact Affect: no depressed affect Lymphatic: no lymphadenopathy and no lymphedema Results & Data Vital Signs (Past 12 Hours) Vital Signs Temp Pulse Pulse Pulse Resp BP BP 10/04/19 11:49 36.9 C 79 19 159/89 H 10/04/19 11:07 78 18 10/04/19 10:35 77 151/80 H 10/04/19 08:00 87 10/04/19 07:27 37.2 C 69 20 156/81 H 10/04/19 04:04 36.6 C 71 18 121/70 Pulse Ox 10/04/19 11:49 92 10/04/19 11:07 90 10/04/19 10:35 92 10/04/19 08:00 10/04/19 07:27 94 10/04/19 04:04 95 PG Care Time/CCT Total # of Minutes Spent Total Time Spent with Patient: Total time spent is greater than 50% in coor dination of care (as documented) at patient's floor/unit and/or counseling patient:
--- NOTE | 2019-10-04 15:29 | Anesthesiology Consultation ---
Date of Service October 04, 2019 Assessment & Plan Chart Review Chart Review: Acceptable Risk for Surgery and Patient NOT seen in Pre Admission Testing Consults Requested none ASA ASA4 Proposed Anesthesia Anesthesia Type: General and MAC Risk / Benefits Reviewed With: PT / POA / Parent / Guardian, Accepts Plan and Informed Consent Obtained History Surgery Operation Date: 10/04/19 16:40 Proposed Procedures p Cystoscopy, Right Retrograde Pyelogram, Right Stent Placement, Possible Ureteroscopy - Tristan Garcia, DO Height/Weight Height: 5 ft 4 in Weight: 84.4 kg Allergies Allergy/AdvReac Type Severity Reaction Status Date / Time Penicillins Allergy Unknown HAPPENED Verified 10/03/19 17:00 A CHILD Sulfa (Sulfonamide Allergy Unknown [facility] LIST Verified 10/03/19 17:00 Antibiotics) Medications Home Medications Medication Instructions Recorded Confirmed Last Taken lisinopril [Zestril] 40 mg PO QAM 07/03/19 10/03/19 10/03/19 metformin [Glucophage XR] 500 mg PO QDD 07/03/19 10/03/19 10/02/19 metoprolol tartrate [Lopressor] 50 mg PO BID 07/03/19 10/03/19 10/03/19 montelukast [Singulair] 10 mg PO HS 07/03/19 10/03/19 10/02/19 nitroglycerin [Nitrostat] 0.4 mg SUBLINGUAL DIRECTED PRN 07/03/19 10/03/19 Un known omeprazole 20 mg PO BID 07/03/19 10/03/19 10/03/19 nebulizers #1 ea 07/20/19 10/04/19 Unknown budesonide-formoterol HFA 160 2 puff INHALATION BID #10.2 gm 08/24/19 10/03/19 10/03/19 mcg-4.5 mcg/actuation aerosol inhaler albuterol sulfate 90 mcg/actuation 2 puffs INHALATION Q6H PRN #18 gm 09/15/19 10/03/19 10/03/19 aerosol inhaler albuterol sulfate 1.25 mg INH Q4H PRN 10/01/19 10/03/19 10/03/19 hydrocodone-acetaminophen [[place]] 1 - 2 tab PO Q6H PRN #20 tab 10/01/19 10/03/19 10/03/19 15:00 ondansetron 4 mg PO Q8H PRN 5 Days #14 tab 10/01/19 10/03/19 Unknown ibuprofen 200 mg PO QID PRN 10/03/19 10/03/19 10/03/19 10:30 200 mg tamsulosin [Flomax] 0.4 mg PO QAM 10/03/19 10/03/19 10/03/19 Active Medications Generic Name Dose Route Start Last Admin Trade Name Freq PRN Reason Stop Dose Admin Albuterol 1.25 mg 10/04/19 13:00 10/04/19 15:27 Ventolin 0.083% 2.5mg/3ml INH 11/03/19 12:59 Not Given Q4R TANIA Budesonide/Formoterol Fumarate 2 puffs 10/03/19 21:00 10/04/19 10:37 Symbicort 160mcg/4.5mcg INH 11/02/19 20:59 Not Given BID TANIA Hydromorphone HCl 0.5 mg 10/03/19 20:22 10/04/19 11:40 Dilaudid IV 10/17/19 20:21 0.5 mg Q2H PRN Administration Pain Sodium Chloride 1,000 mls @ 125 mls/hr 10/03/19 20:22 10/04/19 10:04 Nss 1000ml IV 11/02/19 20:21 0 mls/hr .Q8H TANIA Infusion Insulin Aspart 0 units 10/03/19 21:00 10/04/19 13:19 Novolog Flexpen SC 11/02/19 20:59 Not Given ACHS TANIA Lisinopril 40 mg 10/04/19 09:00 10/04/19 11:31 Zestril PO 11/03/19 08:59 Not Given QAM TANIA Metoprolol Tartrate 50 mg 10/03/19 21:00 10/04/19 11:31 Lopressor PO 11/02/19 20:59 Not Given BID TANIA Montelukast Sodium 10 mg 10/03/19 21:00 10/03/19 21:51 Singulair PO 11/02/19 20:59 10 mg HS TANIA Administration Ondansetron HCl 4 mg 10/03/19 20:22 10/04/19 09:56 Zofran IV 11/02/19 20:21 4 mg Q6H PRN Administration nausea Pantoprazole Sodium 40 mg 10/03/19 21:00 10/04/19 11:31 Protonix PO 11/02/19 20:59 Not Given BID TANIA Tamsulosin HCl 0.4 mg 10/04/19 09:00 10/04/19 11:31 Flomax PO 11/03/19 08:59 Not Given QAM TANIA NPO Date Last Intake of Fluids: 10/03/19 Time Last Intake of Fluids: 23:30 Date Last Intake of Solids: 10/03/19 Time Last Intake of Solids: 18:00 Past Medical History Medical History CAD (coronary artery disease) Diabetes mellitus type II, controlled GERD (gastroesophageal reflux disease) Heart attack HLD (hyperlipidemia) Hypertension Kidney stone on right side Exercise / Class Metabolic Activity III < 4 Walking/Shop/Light housework Past Family History Family History Mother Hypertension Father Coronary heart disease Renal cell carcinoma Other Family history non-contributory Past Surgical History Surgical History History of appendectomy History of cholecystectomy Past Anesthesia History No Hx of Anesthesia Complications and No Family Hx of Anesthesia Complications History of PONV No Hx of PONV and No Hx of Motion Sickness Social History Smoking Status: Never smoker Hx Alcohol Use: No Hx Substance Use: No substance use type: does not use Physical Exam Vital Signs Last Vital Signs Temp 37.4 C 10/04/19 14:45 Pulse 75 10/04/19 14:45 Resp 18 10/04/19 14:45 BP 181/100 H 10/04/19 14:45 Pulse Ox 95 10/04/19 14:45 Constitutional + obese ENMT Mouth: + small oral opening; no dentition abnormality Thyromental Distance: < 3.5 Finger Breadths Mallampati Class: III Neck normal visual inspection, trachea midline, + short neck and + thick neck; neck extension not limited Respiratory normal respiratory effort Auscultation: lungs clear to auscultation bilaterally Cardiovascular Rate/Rhythm: regular rate and regular rhythm Heart Sounds: no murmur Vessels: no carotid bruit Musculoskeletal Spine: normal cervical ROM Neurologic moves all extremities Motor/Sensory: no sensory deficit Psychiatric Orientation: alert and oriented x 3 Testing Laboratory Results 10/04/19 06:48 10/04/19 06:48 PT 10.1 Seconds (9.0-12.0) 10/04/19 06:48 INR 1.0 (0.9-1.1) 10/04/19 06:48 Hemoglobin A1c 5.8 % (4.5-5.6) H 10/04/19 06:48 Urine Color Yellow 10/03/19 17:58 Urine Appearance Clear (Clear) 10/03/19 17:58 Urine pH 6.5 (4.5-7.5) 10/03/19 17:58 Ur Specific [place] 1.015 (1.000-1.030) 10/03/19 17:58 Urine Protein Negative (Negative) 10/03/19 17:58 Urine Glucose (UA) Negative (Negative) 10/03/19 17:58 Urine Ketones 2+ (Negative) H 10/03/19 17:58 Urine Nitrite Negative (Negative) 10/03/19 17:58 Ur Leukocyte Esterase Negative (Negative) 10/03/19 17:58 Urine WBC (Auto) 1-5 /hpf (0-5) 10/03/19 17:58 Urine RBC (Auto) 5-10 /hpf (0-4) H 10/03/19 17:58 U Hyaline Cast (Auto) 1-5 /lpf (0-5) 10/03/19 17:58 U Epithel Cells (Auto) 10-20 /lpf (0-5) H 10/03/19 17:58 Urine Bacteria (Auto) Negative (Negative) 10/03/19 17:58 10/04/19 10/04/19 11:58 07:34 POC Glucose 104 H 87 Electrocardiogram Date: 10/03/19 Chest X-Ray Date: 09/15/19 Findings: + NAD SR w/ sinus arrhythmia at 67;w/ occasional PVC's;poss. infer. IN,age ?;T wave abnormality,? lateral ischemia
[2019-10-04] MEDS ORDERED: PROPOFOL IV EMULSION 10 MG/ML 20 ML VIAL IV ONE (15:53)
[2019-10-04] MEDS ORDERED: fentaNYL citrate 100 MCG/2 ML VIAL ONE (15:53)
[2019-10-04] MEDS ORDERED: LIDOCAINE HCL 2% 2 ML VIAL/AMP(20MG/ML) INFIL ONE (15:53)
[2019-10-04] MEDS ORDERED: ONDANSETRON INJ 2 MG/ML 2 ML VIAL ONE (15:53)
[2019-10-04] MEDS ORDERED: MIDAZOLAM HCL 1 MG/ML 2ML VIAL ONE (16:02)
--- NOTE | 2019-10-04 16:28 | Hospitalist Progress Note ---
Date of Service October 04, 2019 Assessment & Plan (1) CAD (coronary artery disease): (2) GERD (gastroesophageal reflux disease): (3) Diabetes mellitus type II, controlled: (4) HLD (hyperlipidemia): (5) Abnormal results of liver function studies: (6) Right ureteral calculus: R distal ureteral calculus status post stent placement/cystoscopy and retrograde pyelogram KUB showed 3 mm right ureter stone in distal right ureter which has progressed compared to CT from 2 days prior (now more distal); repeat KUB this morning revealed stone further distal near ureterovesicular junction On IV fluids at 125 cc/hr Flomax 0.4 mg PO daily Received Cipro preop Dilaudid 0.5 mg IV q2hr prn for pain control Urology consulted Abnormal results of liver function studies: H/o cholecystectomy - not related to gallstones T bili 1.1 to 1.8, AST 67, to 243 ALT 309 to 488, Alk phos 129 to 179 -increase significantly from admission to today Hepatocellular versus cholestatic pattern. Likely acute given LFTs normal on 10/01/2018. But could also be chronic given low albumin of 2.7. Concern for possible acute hepatitis versus medication induced (only new medication was tamsulosin which given patient's allergy to sulfa could mean a possible reaction) versus cirrhosis Right lower quadrant abdominal pain which is likely from stone Tylenol level less than 2 CK normal Ultrasound gallbladder: Prominent CBD at 1 cm postop change status post cholecystectomy Hepatitis panel ordered Follow LFT -consider GI consult if continues to remain elevated Restrictive airway disease: Recently evaluated by pulm service, received course of Levaquin and Prednisone. Continue Albuterol neb q4hr lizet with Symbicort BID. No acute resp issues noted at this time CAD (coronary artery disease): Reports h/o PR in [place]; did not have cardiac cath. Follows with Dr. Shearer. Stress test in 2012 by [facility] cardiology was negative Continue Lisinopril and metoprolol; not currently on ASA or statin agent GERD (gastroesophageal reflux disease): Continue PPI Diabetes mellitus type II, controlled: Hold home Metformin XR. Hemoglobin A1C 5.8 SSI coverage as inpatient with carb consistent diet HLD (hyperlipidemia): Not currently on statin agent Hypertension: Continue Metoprolol 50 mg BID (pt. reports she takes med prn at home) and Lisinopril BP has been elevated, likely related to acute pain. DVT prophylaxis: SCDs Dispo: Med/surg with tele (7) Restrictive airway disease: (8) History of cholecystectomy: (9) Hypertension: Supervising Physician Co-Signing Physician Notes Resident Physician Supervision Note: I was present with Dr. Cinthya Solorio during the history and exam. I discussed the case with the resident and agree with the findings and plan as documented in the note. Any exceptions or clarifications are listed here: none. Patient was crying considerably upon my arrival. Daughter at bedside. Daughter reports underlying depression going back quite a long time (months or longer). apparently was hospitalized for 1-2 months some time in the last year. He is now ESRD on dialysis. This has created considerable stress for Mrs Cr and her family. Patient felt that when she was admitted last evening she should have gotten surgery right away. She felt that since this is a hospital she would have had faster treatment. We discussed that the stone had migrated to the UVJ and was very close to passing but she was uninterested in this and adamantly voiced her desire for surgical intervention. Staff report she is asking for the pain meds q2h. Following my discussion I excused myself from the room, called the nurse practitioner for the urology team, and they stated she would be seen shortly. Indeed she was in the OR for intervention within a few hours of my bedside rounds. Exam - gen - very tearful, upset, but no acute distress mouth - MMM heart - RRR lungs - CTA b/l abd - mild right sided tenderness, BS+, ND, no HSM ext - no edema A/P: 1. obstructing distal 3mm right ureteral stone at the UVJ; patient desiring surgical intervention; to OR today for cysto/stent placement. Cipro, flomax, pain meds, IVF in meantime. 2. abnormal LFTs - acute hepatitis - etiology uncertain. Check acute hepatitis profile. RUQ u/s findings noting normal liver. No signs of choledocholithiasis. If LFTs worsen may need MRCP however. Uncertain etiology. 3. depression - will address after kidney stone is managed. 4. asthma - schedule nebs at her request although lungs are clear. I spoke with service excellence immediately following the encounter explaining events of this am. total time spent at bedside with pt/daughter, discussing care with Dr Solorio, discussing care w/ urology, discussing issues w/ service excellence - 40 minutes. Documented By: Claudio Reyes MD Subjective Patient was complaining of significant discomfort this afternoon and hoping to get procedure done as soon as possible to have stone removed. Reported right lower quadrant abdominal pain and right low back pain. Urine is dark red in color. Otherwise reported shortness of breath and wheezing at baseline for which she was recently started on scheduled albuterol. Denies any fever, chills, chest pain, nausea, vomiting, dysuria. Review of Systems Review of Systems: As per HPI Physical Exam Physical Exam: General: In NAD Neuro: A&O x 4 Pulm: CTAB equal breath sounds bilaterally CV: RRR, no m/r/g Abdomen:+BS, RLQ TTP, non-distended LE: no LE edema, no calf TTP Results & Data Vital Signs (Past 12 Hours) Vital Signs Temp Pulse Pulse Pulse Pulse Resp BP 10/04/19 14:45 37.4 C 75 18 10/04/19 11:49 36.9 C 79 19 159/89 H 10/04/19 11:07 78 18 10/04/19 10:35 77 10/04/19 08:00 87 10/04/19 07:27 37.2 C 69 20 156/81 H BP Pulse Ox 10/04/19 14:45 181/100 H 95 10/04/19 11:49 92 10/04/19 11:07 90 10/04/19 10:35 151/80 H 92 10/04/19 08:00 10/04/19 07:27 94 Resident Activity Tracking Resident Involvement: Resident Care Provided Care Provided: Adult Hospital Medicine
--- NOTE | 2019-10-04 16:51 | Operative Report ---
PG Post Operative Report Pre & Post Diagnosis Obstructing Stone Right Same Operation Date: 10/04/19 16:40 <No data on this case meets the specified criteria> I identified the patient and participated in the time-out.: Yes Procedure Cystoscopy with right retrograde pyelogram and stent. Operation Date: 10/04/19 16:40 <No data on this case meets the specified criteria> Surgeon Tristan Garcia, II, DO Rn Clinical Quality None Estimated Blood Loss 1 Findings Consistent with Post-Op Diagnosis Stent placed in good position. Specimens None Drains 6 Fr Multilength Anesthesia Type MAC Complications none Disposition Disposition: Recovery Room Indications Patient with obstruction. Risks and benefits discussed at length. Description of Procedure Patient was consented and brought back to the operating room. Patient was placed under anesthesia in the supine position and moved to the dorsal lithotomy position. Patient was prepped and draped in the regular sterile fashion. A time out was completed. A 30degree Cystoscope was placed into the bladder and the entire bladder was examined. The UO's were identified. The UO was cannulized with a catheter and a retrograde pyelogram was completed. A wire was then placed. With the wire in place, a 6 Fr Double J stent was placed. It was confirmed with fluoroscopy. With the stent in place, the bladder was emptied. The scope was removed. The patient was cleaned, aroused from anesthesia, and transferred to the pacu in stable condition having tolerated the procedure well with no complications. I was present and participated in all aspects of the procedure. The patient will be monitored in the PACU until transferred. I attest to the content of the Intraoperative Record and any orders documented therein. Any exceptions are noted below.
[2019-10-04] MEDS ORDERED: ATROPINE SULFATE 0.1 MG/ML 10ML SYR IV PRN (16:58)
[2019-10-04] MEDS ORDERED: fentaNYL citrate 100 MCG/2 ML VIAL IV PRN (16:58)
[2019-10-04] MEDS ORDERED: NALOXONE HCL 0.4 MG/1 ML VIAL/CARP IV PRN (16:58)
[2019-10-04] MEDS ORDERED: PROMETHAZINE HCL 12.5 MG in SODIUM CHLORIDE 0.9% 50 ML IV PRN (16:58)
[2019-10-04] MEDS ORDERED: LABETALOL HCL IV 5 MG/ML 20ML IV PRN (16:58)
[2019-10-04] MEDS ORDERED: ePHEDrine sulfate 50 MG/ML AMP IV PRN (16:58)
[2019-10-04] MEDS ORDERED: ONDANSETRON INJ 2 MG/ML 2 ML VIAL IV PRN (16:58)
[2019-10-04] MEDS ORDERED: FLUMAZENIL 0.1 MG/1 ML 10 ML VIAL IV PRN (16:58)
--- NOTE | 2019-10-04 17:09 | Fluoroscopy Report ---
FL retrograde includes kub HISTORY: Kidney stones. FLUOROSCOPY TIME: 6 seconds FINDINGS: 2 fluoroscopic spot images were submitted for review. Retrograde opacification of the right renal collecting system with placement of a right ureteral stent. This appears in good position. IMPRESSION: Fluoroscopy provided for right ureteral stent placement.. Electronically signed by: López Picharod M.D. 10/04/2019 5:08 PM
[2019-10-04] MEDS ORDERED: Nursing to Pharmacy Communication ONE (20:21)
[2019-10-04] MEDS: MONTELUKAST SODIUM 10 MG TABLET PO SCH (20:32)
[2019-10-04 20:35] LABS: Hepatitis B Surface Antigen Neg (Neg)
[2019-10-04 21:03] LABS: Hepatitis C IgG 13Yrs+Old_Rflx Neg (Neg)
[2019-10-05] MEDS: SODIUM CHLORIDE 0.9% 1000ML 1,000 ML IV SCH (02:30)
[2019-10-05] MEDS: ALBUTEROL 0.083% NEBU SOLN 3 ML VIAL INH SCH ×4 (03:37→15:03)
[2019-10-05 07:35] LABS: Basophils # (auto) 0.01 K/uL (0-0.2); Basophils % (auto) 0.1 %; Eosinophils # (auto) 0.13 K/uL (0-0.5); Eosinophils % (auto) 1.9 %; Hemoglobin 12.1 g/dL (12.0-16.0); Immature Granulocytes # (auto) 0.02 K/uL (0.00-0.02); Immature Granulocytes % (auto) 0.3 %; Lymphocytes # (auto) 1.72 K/uL (1.2-3.4); Lymphocytes % (auto) 24.5 %; Mean Corpuscular Hemoglobin 29.7 pg (25-34); Mean Corpuscular Hgb Conc 32.7 g/dL (32-36); Mean Corpuscular Volume 90.9 fL (80-100); Mean Platelet Volume 10.2 fL (7.4-10.4); Monocytes # (auto) 0.63 K/uL (0.11-0.59); Neutrophils % (auto) 64.2 %; Platelet Count 214 K/uL (130-400); RDW Coefficient of Variation 14.9 % (11.5-14.5); RDW Standard Deviation 49.8 fL (36.4-46.3); Red Blood Count 4.07 M/uL (4.2-5.4); White Blood Count 7.01 K/uL (4.8-10.8)
[2019-10-05 08:03] LABS: Albumin Level 2.6 gm/dl (3.4-5.0); Bilirubin Direct 0.4 mg/dl (0-0.2); Calcium 8.5 mg/dl (8.5-10.1); Est GFR (African American) 64.2; Est GFR (Non-African American) 55.4; Potassium 3.3 mmol/L (3.5-5.1)
[2019-10-05] MEDS: lisinopriL 40 MG TAB PO SCH (08:04)
[2019-10-05] MEDS: TAMSULOSIN HCL 0.4 MG CAP PO SCH (08:04)
[2019-10-05] MEDS: METOPROLOL TARTRATE 50 MG TAB PO SCH (08:04)
[2019-10-05] MEDS: PANTOprazole 40 MG TAB PO SCH (08:04)
[2019-10-05] MEDS: BUDESONIDE/FORMOTEROL FUMARATE 160/4.5 60 PUFFS/INHALER INH SCH (08:04)
[2019-10-05] MEDS: INSULIN ASPART 100 UNITS/ML 3 ML PEN SC SCH ×3 (08:05→17:01)
[2019-10-05 08:10] LABS: Bilirubin,Total 1.2 mg/dl (0.2-1); Total Protein 5.7 gm/dl (6.4-8.2)
--- NOTE | 2019-10-05 08:24 | Anesthesiology Progress Note ---
Date of Service October 05, 2019 Anesthesia Post Procedure Vital Signs Vital Signs: Temp Pulse Pulse Pulse Pulse Resp BP 10/05/19 07:15 36.9 C 83 16 10/05/19 07:07 84 16 10/05/19 03:39 90 16 10/05/19 03:17 37.2 C 77 18 134/84 10/04/19 23:42 68 10/04/19 23:31 88 18 10/04/19 22:50 37.4 C 82 16 10/04/19 19:42 80 16 10/04/19 18:47 121 H 10/04/19 18:30 36.7 C 86 18 10/04/19 18:07 36.9 C 103 H 18 10/04/19 17:30 36.8 C 72 18 10/04/19 17:15 37.4 C 82 18 10/04/19 17:05 88 18 10/04/19 16:56 37.6 C H 95 H 18 10/04/19 14:45 37.4 C 75 18 10/04/19 11:49 36.9 C 79 19 159/89 H 10/04/19 11:07 78 18 10/04/19 10:35 77 BP Pulse Ox 10/05/19 07:15 148/75 H 93 10/05/19 07:07 98 10/05/19 03:39 94 10/05/19 03:17 93 10/04/19 23:42 10/04/19 23:31 95 10/04/19 22:50 126/78 94 10/04/19 19:42 10/04/19 18:47 10/04/19 18:30 163/83 H 94 10/04/19 18:07 141/87 H 94 10/04/19 17:30 152/93 H 98 10/04/19 17:15 149/81 H 95 10/04/19 17:05 149/86 H 95 10/04/19 16:56 136/91 95 10/04/19 14:45 181/100 H 95 10/04/19 11:49 92 10/04/19 11:07 90 10/04/19 10:35 151/80 H 92 Notes Mental Status: alert / awake / arousable and participated in evaluation Nausea / Vomiting: adequately controlled Pain: adequately controlled Airway Patency, RR, SpO2: stable & adequate BP & HR: stable & adequate Hydration State: stable & adequate Anesthetic Complications: no major complications apparent and Pt Satisfied with anesthetic care
--- NOTE | 2019-10-05 08:56 | Billing Data ---
Coding Level of Care Code 65934 Subseq Obs Care Lvl 3
[2019-10-05] MEDS ORDERED: POTASSIUM CHLORIDE 20 MEQ TABCR PO STA (11:13)
--- NOTE | 2019-10-05 13:35 | Urology Progress Note ---
Date of Service October 05, 2019 Assessment & Plan (1) Kidney stone: 63yo F POD #1 s/p right ureteral stent secondary to distal right ureteral stent placement Doing well, tolerating stent better than expected Pt in good spirits. UC&S prelim negative KUB prior to discharge Okay for discharge from perspective with pyridium and pain control. Will arrange for outpatient ESWL, appt tomorrow at 2:20pm with myself at our [address]. Thank you for allowing us to participate in the acute care of Mrs. Cr. Please reconsult us with additional questions, concerns or changes in patient status. Subjective 63yo F POD #1 s/p right ureteral stent placement doing well s/p stent insertion denies n/v/f/c typical stent irritation, some flank pain with voiding minimal hematuria some dysuria Review of Systems Review of Systems: All systems reviewed & are unremarkable except as noted in HPI & below Physical Exam Physical Exam: A&Ox3 RRR Abd soft, nontender Results & Data Vital Signs (Past 12 Hours) Vital Signs Temp Pulse Pulse Resp BP BP Pulse Ox 10/05/19 11:26 37 C 78 16 129/89 93 10/05/19 11:18 77 16 95 10/05/19 07:15 36.9 C 83 16 148/75 H 93 10/05/19 07:07 84 16 98 10/05/19 03:39 90 16 94 10/05/19 03:17 37.2 C 77 18 134/84 93 PG Care Time/CCT Total # of Minutes Spent Total Time Spent with Patient: Total time spent is greater than 50% in coordination of care (as documented) at patient's floor/unit and/or counseling patient:
--- NOTE | 2019-10-05 14:29 | XRay Report ---
XR KUB/Abdomen 1 view CLINICAL HISTORY: stone visibility s/p stent COMPARISON STUDY: 10/04/2019 FINDINGS: There is no pathologic bowel dilatation. There is moderate stool present throughout the col on which largely obscures the renal shadows. Two small right renal calculi are suspected. There is a double pigtail right-sided nephroureteral stent. There is a 6 mm superimposed density projected over the mid aspect of the stent, possibly representing a ureteral calculus. In addition there is a 3 mm calcific density overlying the distal portion of the stent, and a 2 mm additional calcific density pr ojected over the distal portion of the stent. IMPRESSION: 1. Interval placement of a right-sided double pigtail nephroureteral stent 2. Suspected right-sided nephrolithiasis 3. Nonspecific calcific densities projected over the right ureteral stent, potentially representing u reteral calculi Electronically signed by: Festus Giles M.D. 10/05/2019 2:28 PM
--- NOTE | 2019-10-05 16:24 | Consultation Report ---
DATE OF CONSULTATION: 10/05/2019 GASTROINTESTINAL CONSULT NOTE REASON FOR EVALUATION: Abnormal liver tests. HISTORY OF PRESENT ILLNESS: The patient is a 63-year-old [place] female who presented to the hospital with acute onset of right flank pain and was found to have a 3 mm calculus in the right ureter. This failed to pass and she ended up having a stent placed. During her hospital stay, at presentation, her liver tests were normal, but have increased, her bilirubin is slightly elevated at 1.8 at maximum, now 1.2. ALT, AST and alkaline phosphatase are all elevated as well. The patient does have a history of cholecystectomy 20 years ago for multiple small gallstones. She has not had any problems since then. On ultrasound, the bile duct is 10 mm, which is not unusual after a cholecystectomy and there is no visible stones in her bile duct, but this is not a very sensitive test. She has had hepatitis B surface antigen and hepatitis C antibody test, which were both negative. MRCP has been ordered and I convinced her to proceed with that, which they will do later today. PAST MEDICAL HISTORY: Remarkable for coronary disease, status post IN in the past. She has had type 2 diabetes, acid reflux, hyperlipidemia, hypertension, obesity and kidney stones. She has had an appendectomy and cholecystectomy. FAMILY HISTORY: Positive for hypertension in her mother, coronary disease and renal cell cancer in her father. SOCIAL HISTORY: The patient lives with her spouse. Her daughter is here and acting as an scanner supervisor. She does not smoke or use alcohol. REVIEW OF SYSTEMS: Positive for fatigue, weakness, anorexia. The remainder is negative. PHYSICAL EXAMINATION: GENERAL: The patient appears in no acute distress. VITAL SIGNS: Blood pressure is currently 129/89, pulse 78, respirations 16, temperature is 37. Room air saturation 93%. ABDOMEN: Shows right upper quadrant and right lower quadrant scars. Bowel sounds are normal. There are no masses or tenderness. EXTREMITIES: Showed some tenderness in her right arm from a previous fracture a couple of months ago. IMPRESSION AND PLAN: The patient has abnormal liver tests since being hospitalized. These could be a result of some of the medications she has been given. It is possible she has a common bile duct stone. I have convinced her to proceed with the MRI as a better more accurate and more sensitive test to find a common bile duct stone. If there is a stone present, then she will probably need to have an ERCP at some point. If it is negative, then we can just follow her liver tests and hopefully resolve after her acute illness improves. The patient does have metabolic syndrome and is highly likely to have underlying fatty liver, but keeping in mind that her baseline liver tests on admission were normal. I will follow the patient.
--- NOTE | 2019-10-05 18:42 | Discharge Summary ---
Date of Service October 05, 2019 Admission HPI Per Admitting Provider Mrs. Cr is a 63 year old female with past medical history of asthma, restrictive lung disease, HTN, DM, GERD, CAD, HLD who presented with right flank pain. She presented to the ER on 10/01 with similar symptoms; CT showed 3 mm proximal right ureter calculus. She was discharged to home with pain control and Flomax. Pt. reports she has had increasing pain in her right flank region following discharge to home -- has not had any improvement with PO narcotics. Her daughter states she was "doubled over" in pain this morning and brought her to the ER. Denies fever/chills, dysuria or hematuria, abd pain, URI symptoms, chest pain, SOB. Has nausea related to pain, denies vomiting. Last BM was a few days ago but PO intake has been very limited. ER course: KUB showed 3 mm right ureter stone at distal right ureter. Required Fentanyl IV and toradol for pain relief. Will be admitted for IV fluid hydration and IV narcotics. Admission Exam Per Admitting Provider General: In acute distress related to pain HEENT: NC/AT; PERRLA with EOMI; [place] conjunctiva, MMM. No erythema of posterior pharynx Neck: Supple and nontender Cardiac: RRR Lungs: CTA bilaterally Abdomen: Bowel normoactive X 4; tender to palp over right abd/flank region. : Deferred Extremities: Warm. No edema present Neuro: No focal weakness Skin: No rash Principal Diagnosis R distal ureteral kidney stone s/p stent placement Abnormal LFTs Discharge Exam General: In NAD Neuro: A&O x 4 Pulm: CTAB equal breath sounds bilaterally CV: RRR, no m/r/g Abdomen:+BS, no TTP in all quadrants, non-distended, no hepatosplenomegaly appreciated LE: trace RLE edema, no calf TTP Skin: no jaundice appreciated Discharge Data Allergies Allergy/AdvReac Type Severity Reaction Status Date / Time Penicillins Allergy Unknown HAPPENED Verified 10/03/19 17:00 A CHILD Sulfa (Sulfonamide Allergy Unknown [facility] [place] LIST Verified 10/03/19 17:00 Antibiotics) Consultations 10/03/19 18:35 ED Decision to Admit Stat 10/04/19 12:28 Consult Patient Rep / Service Excellence [Consult Patient Services] Routine 10/04/19 12:45 Consult Urology Routine 10/05/19 11:13 Consult Gastroenterology Routine Procedures Performed Operation Date: 10/04/19 16:40 Actual Procedures s Cystoscopy, Right Retrograde Pyelogram(Right) - Tristan Garcia DO p Right ureteral stent placement(Right) - Tristan Garcia DO Ordered Studies 10/04/19 08:25 US gallbladder Routine 10/04/19 14:52 FL retrograde includes kub Routine 10/05/19 12:03 MR MRCP Routine - was NOT completed; patient left AMA prior to its completion Hospital Course (1) CAD (coronary artery disease): (2) GERD (gastroesophageal reflux disease): (3) Diabetes mellitus type II, controlled: (4) HLD (hyperlipidemia): (5) Abnormal results of liver function studies: (6) Right ureteral calculus: R distal ureteral calculus status post stent placement/cystoscopy and retrograde pyelogram KUB post stent placement 3 mm right ureteral stone now resides in the expected location of the distal right ureter Flomax 0.4 mg PO daily Follow-up with urology Abnormal results of liver function studies: H/o cholecystectomy about 25 years ago per patient for gallstones T bili 1.2, AST 162 ALT 438, Alk phos 217 Acute and concern for common bile duct stone. Patient possibly also has fatty liver given metabolic syndrome MRCP was ordered to rule out choledocholithiasis however patient left AMA before MRCP could be completed Recommend close outpatient follow-up with PCP and GI for further work-up Tylenol level less than 2 CK normal Ultrasound gallbladder: Prominent CBD at 1 cm postop change status post cholecystectomy Hep a pending, hep B surface antigen negative, hep B core antibody pending, hep C negative GI consulted: Recommended MRCP and possible ERCP if has common bile duct stone Restrictive airway disease: Recently evaluated by pulm service, received course of Levaquin and Prednisone. Continued Albuterol neb q4hr lizet with Symbicort BID. No acute resp issues CAD (coronary artery disease): Reports h/o OH in [place]; did not have cardiac cath. Follows with Dr. Shearer. Stress test in 2012 by [facility] cardiology was negative Continued Lisinopril and metoprolol; not currently on ASA or statin agent GERD (gastroesophageal reflux disease): Continued PPI Diabetes mellitus type II, controlled: Resume home Metformin XR. Hemoglobin A1C 5.8 HLD (hyperlipidemia): Not currently on statin agent Hypertension: Continued Metoprolol 50 mg BID (pt. reports she takes med prn at home) and Lisinopril (7) Restrictive airway disease: (8) History of cholecystectomy: (9) Hypertension: Total Time Total Time Spent Total Time Spent (In Minutes): 30 mins Discharge Plan Discharge Items Patient Disposition: Against Medical Advice Reason For Visit: KIDNEY STONE Discharge Diagnosis: Ureteral calculus elevated LFT Activity: Resume your previous activity Non-emergency contact: Primary Care Provider Call non-emergency contact if: you have any medication questions and your symptoms worsen Follow-up/Referrals: Tristan Garcia DO [Physician] - 10/06/19 2:20 pm (Please, follow up at [facility] Urology Office on FridayOctober 06 at 2:20 pm. *The office is located at [address] in [place]. The office phone number is [phone].) Cinthya Solorio MD [Primary Care Provider] - 10/15/19 7:50 am (Please, follow up with Dr. Cinthya Solorio on FridayOctober 15 at 7:50 am. *The office is located in [address] of [facility], next to this [facility]. If you need to change this appointment, call the office at [phone].) Diet: Carb Count or DM1 Addtl Attending Provider Instructions: Follow up outpatient with Urology and PCP/GI regarding elevated LFTs and need for close follow up Pending Studies at Discharge: No Stand-Alone Forms: My [facility] [email or web address], Smoking Cessation Medications and DC Order Prescriptions: Continued (DME) nebulizers misc See Dose Instructions .ROUTE .MEDSUPPLY Qty: 1 RF: 0 Symbicort 160-4.5 mcg/actuation HFA aerosol inhaler 2 puff INHALATION BID Qty: 10.2 RF: 3 albuterol sulfate [Ventolin HFA] 90 mcg/actuation HFA aerosol inhaler 2 puffs INHALATION Q6H PRN (Reason: Shortness Of Breath Or Wheezing) Qty: 18 RF: 5 albuterol sulfate 1.25 mg/3 mL solution for nebulization 1.25 mg INH Q4H PRN (Reason: Shortness Of Breath Or Wheezing) RF: 0 metoprolol tartrate [Lopressor] 50 mg Tablet 50 mg PO BID RF: 0 nitroglycerin [Nitrostat] 0.4 mg Tablet, Sublingual 0.4 mg sublingual DIRECTED PRN (Reason: Chest Pain) RF: 0 omeprazole 20 mg Capsule,Delayed Release(Dr/Ec) 20 mg PO BID RF: 0 montelukast [Singulair] 10 mg Tablet 10 mg PO HS RF: 0 lisinopril [Zestril] 40 mg Tablet 40 mg PO QAM RF: 0 metformin [Glucophage XR] 500 mg Tablet Extended Release 24 Hr 500 mg PO QDD RF: 0 tamsulosin [Flomax] 0.4 mg capsule 0.4 mg PO QAM RF: 0 Discontinued hydrocodone-acetaminophen [[place]] 5-325 mg tablet 1 - 2 tab PO Q6H PRN (Reason: pain) Qty: 20 RF: 0 ibuprofen 200 mg Tablet 200 mg PO QID PRN (Reason: Pain) RF: 0 Discharge Orders: Left Against Medical Advice (Routine); Ordered 10/05/19 Ordered By: Cinthya Solorio Admission Data Admit Date/Time: 10/03/19 19:07 Attending Provider: Claudio Reyes Admit Provider: Kelsie Gomes Primary Care Provider: Cinthya Solorio Other Providers: Kelsie Gomes ; Jeff Stark I. ; Yoni Russell Other Interventions: Discharge Summary Assessment (RN) Last Done: 10/05/19 18:10 DC Date/Time DO NOT enter until pt leaves facility: 10/05/19 18:40 Supervising Physician Co-Signing Physician Notes Resident Physician Supervision Note: I interviewed and examined the patient. Discussed with Dr. Cinthya Solorio and agree with findings and plan as documented in the note. Any exceptions or clarif ications are listed here: none. 63yo female with history of CAD, asthma, and prior kidney stones who presented with right sided flank/abdominal pain 2nd to obstructing right-sided kidney stone. She had previously been seen in the ER and a CT during that prior visit showed a 3mm right-sided ureteral stone. Following admission she was given copious IV hydration, pain meds, and alpha [place]. Although the stone had migrated to the right UVJ based on x-rays the patient requested surgical intervention. [facility] was [facility] and she was taken to the OR where cystoscopy and right ureteral stent placement was performed. Her presenting symptoms resolved following such. Her stay was complicated by markedly abnormal LFTs. All LFTs were normal on 10/01/19 (date of first ER visit for kidney stone) but were all high on 10/03/19 (date of admission). The exact cause of the abnormal LFTs was uncertain. Hep B/C testing were negative. There was no reported use of high amounts of tylenol (and tylenol level was undetectable at admission). There was no documented hypotension. RUQ u/s was negative for obvious choledocholithiasis although CBD was 1cm. She had had a prior cholecystectomy in [place] 20-30 years ago. MRCP was advised to ensure nothing was present in the CBD (gallstones, etc). She was seen by [facility], Dr Russell, who also agreed with MRCP. While waiting for her MRCP the patient left the hospital abruptly constituting an "Against medical advice" (AMA) discharge. No prescriptions were given to the patient at discharge, and no discharge instr uctions were formulated either because of the AMA status. On the day of AMA the patient and her daughter were shown the abnormal LFTs and the importance of trying to find out the cause. They were counseled that several of the LFTs were still rising in fact. She will need, at minimum, repeat LFTs as an outpatient - preferably within 48 hours - to ensure stability. She will have f/u with [facility] for stent management. discharge exam: gen - NAD, anxious mouth - MMM heart - RRR, s1 s2 lungs - CTA b/l abd - soft NT ND BS+ no HSM no flank tenderness ext - pulses 2+ b/l skin - no jaundice eyes - no icterus Documented By: Claudio Reyes MD Resident Activity Tracking Resident Involvement: Resident Care Provided Care Provided: Adult [facility]
--- NOTE | 2019-10-05 23:11 | Billing Data ---
Coding Level of Care Code 97476 OBS Care - Discharge
[2019-10-06 11:55] LABS: Hepatitis A Antibody IgM NON-REACTIVE (NON-REACTIVE); Hepatitis B Core Antibody IgM NON-REACTIVE (NON-REACTIVE)
== END 2019-10-05 18:40 | disposition left against medical advice (07) ==
LOC: 2N 16:37 → ED 16:37 → SUATTDRO 19:07 → 2N 19:43